=== PATIENT | female | born 1935 | race Caucasian/White ===

== ENCOUNTER → 2016-05-28 | Outpatient (CLI) | payer OTHER ==
--- NOTE | 2016-05-28 17:46 | MA ---
Screening Digital Mammogram Clinical Indications: Routine screening. Technique: Standard cephalocaudal and mediolateral oblique projections are obtained. This examinati on is processed by the [employer] computer aided detection system. Comparison: September 2013, September 2012, August 2011 and July 2010 Breast density: B; There are scattered fibroglandular densities. Findings: CAD was reviewed. No suspicious findings are identified. Impression: Negative mammogram. . BI-RADS 1. Recommendation: Routine screening is recommended in one year. [facility] will send a result letter to the patient. Negative mammography should not preclude additional workup of a clinically suspicious finding. The patient's information is entered into a reminder system with a target due date for her next mammo gram.
--- NOTE | 2016-05-31 08:07 | DX ---
DEXA Bone Densitometry Technique: DEXA scan was performed on [employer] W Bone Densitometer Indication: Osteopenia Comparator Study: May 2013 Results: Lumbar Spine BMD: 0.967 T-score: -0.7 Prior BMD: 0.908 % change: 6.5% Total Hip (Right) BMD: 0.728 T-score: -1.8 Prior BMD: 0.760 % Change: -4.3% Femoral Neck (Right) BMD: 0.688 T-score: -1.5 1/3 Radius BMD: 0.553 T-score: -2.3 CONCLUSION: Osteopenia In comparison the prior study from May 2013 the patient measured BMD in the lumbar spine is incre ased significantly. The patient's measured BMD in the total hip has decreased significantly. ADDITIONAL COMMENTS: By FRAX calculation, the 10 year probability of any major osteoporotic fracture is 11%. The estimated 10 year probability of hip fracture is 2.5%. Moderate degenerative changes are present in the lower lumbar spine. This will increase the measured bone density lumbar spine. Recommend the use of other sites to assess overall fracture risk. Consider repeating the study in 2 years NOTE: The risk of osteoporotic fractures increases approximately twofold for each 1.0 SD decrease in T-score. The T-score represents the standard deviations from a young normal, same sex, reference po pulation. Low bone density is not the only risk factor for fracture. Clinical factors to consider include fall risk, previous osteoporotic fractures, family history of fractures, smoking, and low body weight. Patients who have an unexpectedly low BMD may need to be evaluated for secondary causes of low bone m ineral density. In comparing the present study to a prior study, lack of a significant increase or decrease in BMD ma y signify efficacy of the patient's present treatment. Bone mineral density measurements performed with densitometers produced by different manufacturers ar e not comparable. For the most reproducible BMD measurement, subsequent exams should be performed on the same densitometer.
== END ==
LOC: BMCIMAGING 15:00
PROVIDERS: ATTEND Internal Medicine
DX: Z12.31 Encounter for screening mammogram for malignant neoplasm of breast (principal); Z13.820 Encounter for screening for osteoporosis; M85.80 Other specified disorders of bone density and structure, unspecified site
CPT/HCPCS: G0202

== ENCOUNTER → 2017-06-02 | Outpatient (CLI) | payer OTHER | LOC: BMCIMAGING 10:30 | PROVIDERS: ATTEND Internal Medicine | DX: R92.0 Mammographic microcalcification found on diagnostic imaging of breast (principal) ==

== ENCOUNTER → 2017-06-03 | Outpatient (CLI) | payer OTHER | LOC: FIMAGING 09:25 | PROVIDERS: ATTEND Internal Medicine | DX: R59.9 Enlarged lymph nodes, unspecified (principal) ==

== ENCOUNTER 2017-06-09 07:07 | Day surgery (SDC) | payer OTHER ==
[2017-06-09] MEDS ORDERED: LIDOCAINE 1% 2 ML INJ ID PRN (07:21)
[2017-06-09] MEDS ORDERED: LR 1,000 ML IV ONE (07:21)
[2017-06-09 07:46] VITALS: PULSE 69
[2017-06-09] MEDS ORDERED: BUPIVACAINE 0.5% 30 ML SDV ONE (08:35)
--- NOTE | 2017-06-09 08:38 | PDANEPAE ---
ANE Past Medical History - Cardiovascular History Hx Hypertension: Yes Hx Arrhythmias: Yes Hx Chest Pain: No Hx Coronary Artery / Peripheral Vascular Disease: No Hx CHF / Valvular Disease: No Hx Palpitations: No - Pulmonary History Hx COPD: No Hx Asthma/Reactive Airway Disease: No Hx Recent Upper Respiratory Infection: No Hx Oxygen in Use at Home: No Hx Sleep Apnea: No Sleep Apnea Screening Result - Last Documented: Negative - Neurologic History Hx Cerebrovascular Accident: No Hx Seizures: No Hx Dementia: No - Endocrine History Hx Diabetes: No - Renal History Hx Renal Disorders: No - Liver History Hx Hepatic Disorders: No - Neurological & Psychiatric Hx Hx Neurological and Psychiatric Disorders: No - Cancer History Hx Cancer: No - Congenital Disorder History Hx Congenital Disorders: No - GI History Hx Gastrointestinal Disorders: No - Other Health History Other Health History: NONBE - Chronic Pain History Chronic Pain: No - Surgical History Prior Surgeries: NONE ANE Review of Systems Review of Systems: - Exercise capacity METS (RN): 4 METS ANE Patient History - Allergies Allergies/Adverse Reactions: pneumococcal 7-valent conjugate to Allergy (Intermediate, Verified 06/08/17 16: 27) Other-Enter Comments diphtheria toxoid,fluid Allergy (Unknown, Unverified 06/08/17 16:29) - Home Medications Home Medications: Quinapril HCl [Accupril 10 MG] 09/07/13 [Last Taken 06/08/17 11:00] Herbals/Supplements -Info Only 06/09/17 [Last Taken 06/07/17] - NPO status NPO Since - Liquids (Date): 06/08/17 NPO Since - Liquids (Time): 22:00 NPO Since - Solids (Date): 06/08/17 NPO Since - Solids (Time): 19:00 - Anes Hx Anes Hx: no prior problems - Smoking Hx Smoking Status: Never smoked - Family Anes Hx Family Hx Anesthesia Complications: NONE ANE Labs/Vital Signs - Vital Signs Blood Pressure: 174/93 Heart Rate: 69 Respiratory Rate: 20 O2 Sat (%): 97 Height: 175.26 cm Weight: 61.235 kg ANE Physical Exam - Airway Neck exam: FROM Mallampati Score: Class 2 Mouth exam: normal dental/mouth exam - Pulmonary Pulmonary: no respiratory distress, no rales or rhonchi, clear to auscultation - Cardiovascular Cardiovascular: regular rate and rhythym, no murmur, rub, or gallop - ASA Status ASA Status: III ANE Anesthesia Plan Anesthesia Plan: MAC
[2017-06-09] MEDS ORDERED: fentaNYL 100 MCG/2 ML INJ ONE (08:43)
[2017-06-09] MEDS ORDERED: PROPOFOL 200 MG/20 ML VIAL ONE (08:47)
[2017-06-09] MEDS ORDERED: ENALAPRILAT DIHYDRATE 1.25 MG/ML VIAL IVP PRN (08:50)
[2017-06-09] MEDS ORDERED: ACETAMINOPHEN 500 MG TAB PO PRN (08:50)
[2017-06-09] MEDS ORDERED: NALOXONE HCL 0.4 MG/ML INJ IVP PRN (08:50)
[2017-06-09] MEDS ORDERED: LR 500 ML IV PRN (08:50)
[2017-06-09] MEDS ORDERED: ONDANSETRON 4 MG/2 ML VIAL IVP PRN (08:50)
[2017-06-09] MEDS ORDERED: HYDROCODONE/APAP 5/325 TAB PO PRN (08:50)
[2017-06-09] MEDS ORDERED: PROMETHAZINE HCL 25 MG/ML INJ IVP PRN (08:50)
[2017-06-09] MEDS ORDERED: fentaNYL 100 MCG/2 ML INJ IVP PRN (08:50)
--- NOTE | 2017-06-09 09:40 | PDHPUP ---
History & Physical Update H&P update statement: This history and physical update is based on an assessment of the patient which was completed after admission or registration (within 24 hours), but prior to the surgery/procedure. H&P update: H&P reviewed & patient examined, no change in patient's condition since H&P completed
--- NOTE | 2017-06-09 09:41 | POSTOPPROG ---
Post Op Note Date of Operation: 06/09/17 Surgeon: Kevin Demarco Pals Nurse: MICHAEL Zuniga Anesthesiologist: Dr. Gardiner Anesthesia: IV Sedation Pre-op Diagnosis: R groin BABAR Post-op Diagnosis: same Procedure: Excision R groin node Findings: 15mm node Inf/Abcess present in the surg proc area at time of surgery?: No EBL: Minimal
--- NOTE | 2017-06-09 09:56 | POSTANESTH ---
Post Anesthetic Evaluation Cardiovascular Status: Normal, Stable Respiratory Status: Normal, Stable, Similar to Pre-op Cond. Level of Consciousness/Mental Status: Can Participate in Eval, Alert and Oriented Pain Control: Adequate, Prn Tx Ordered Nausea/Vomiting Control: Adequate, Prn Tx Ordered Complications Possibly Related to Anesthesia: None Noted
--- NOTE | 2017-06-09 10:05 | GOP ---
[f rep st] OPERATIVE REPORT DATE OF OPERATION: 06/09/2017 SURGEON: Amol Demarco MD PIT LABORER: Marzena Zuniga, MS-3. ANESTHESIA: Monitored anesthetic care. ANESTHESIOLOGIST: Dr. Smith PREOPERATIVE DIAGNOSIS: Right groin lymphadenopathy. POSTOPERATIVE DIAGNOSIS: Right groin lymphadenopathy. PROCEDURE PERFORMED: Excision of right groin lymph node. FINDINGS: Patient had approximately a 15 mm lymph node. There were other smaller nodes present in the same basin. No other lesions were identified. ESTIMATED BLOOD LOSS: 20 cc. INDICATIONS: This is a 81-year-old female with a history of enlarged right groin node. Risks and benefits of procedure were discussed with the patient and her family, their questions were answered, they wished to proceed. DESCRIPTION OF PROCEDURE: Patient in supine position. After induction of adequate IV sedation, patient prepped and draped in standard surgical fashion. 0.5% Marcaine was injected throughout the right groin for local anesthesia. An oblique incision was made with a #15 blade, carried down to subcutaneous tissue with Bovie cautery and blunt dissection. Sharp and blunt dissection were used to isolate the largest node in the basin. This was approximately a 15 mm node, was very mobile. The areas of lymphatics were clamped, divided, and ligated with 3-0 Vicryl ties. The specimen was then sent fresh for permanent section. The area was thoroughly irrigated. Hemostasis was achieved with cautery. The subcutaneous tissue was approximated in layers using 3-0 Vicryl in interrupted fashion. Skin was closed with 4-0 Monocryl in a subcuticular stitch. Wounds were sterilely dressed. The patient was taken to PACU in stable condition. COMPLICATIONS: None. DRAINS: None. /[id number]/MODL MTDD
[2017-06-09 10:07] VITALS: TEMP 97.5
[2017-06-09 11:13] VITALS: BP 159/86; RESP 12; O2SAT 96
== END 2017-06-09 10:45 | disposition home or self-care (01) ==
LOC: FSGY 07:07
PROVIDERS: ATTEND Surgery
PROC: 07BH0ZX Excision of Right Inguinal Lymphatic, Open Approach, Diagnostic (ICD-10-PCS; principal; 2017-06-09 08:45)
DX: R59.0 Localized enlarged lymph nodes (principal); I10 Essential (primary) hypertension; Z78.0 Asymptomatic menopausal state; Z86.73 Personal history of transient ischemic attack (TIA), and cerebral infarction without residual deficits; Z96.642 Presence of left artificial hip joint
CPT/HCPCS: 88184-90; 88185-91; J2704; J3010